=== PATIENT | male | born 1960 | race Caucasian/White ===

== ENCOUNTER 2019-05-11 08:41 | Outpatient (CLI) | payer OTHER ==
[~2019-05-11 08:41] MED LIST: AMIO200T42 PO; ASPI-515 PO; ATOR40TA78 PO; CLOP75TA PO; DOCU-131 PO; FURO20TA3 PO; LOSA25TA25 PO; METO25TA35 PO/NG; NITR0.4T28 SL; OXYC5CAP2 PO; POTA10TA5 PO; PRAV10TA2 PO
[2019-05-11] MEDS ORDERED: OMNIPAQUE 350 MG/ML, 100ML BOTTLE ONE (09:20)
== END 2019-05-11 23:59 | disposition home or self-care (01) ==
LOC: CFH 08:41
PROVIDERS: ATTEND Surgery
DX: I65.23 Occlusion and stenosis of bilateral carotid arteries (principal)
CPT/HCPCS: 70498; 82565; Q9967

== ENCOUNTER 2020-06-09 02:58 | Emergency (ER) | payer OTHER ==
[~2020-06-09] VITALS: Ht 175.3 cm; Wt 104.0 kg
--- NOTE | 2020-06-09 03:30 | NUR ---
Patient comes in with complaits of not being able to void since 1800. Patient stated that he has been having trouble voiding all day. 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 Placed leach cath. had 800ml immedatly out. Patient stated relief. B/p improved. aware.
[2020-06-09 03:48] LABS: MICROSCOPIC AUTO
[2020-06-09 03:51] LABS: ALBUMIN 3.8 g/dL (3.4-5.0); ANION GAP 8 mmol/L (5-15); BASOPHILS % (AUTO) 1 % (0-1); CALCIUM 8.9 mg/dL (8.5-10.1); CHLORIDE 109 mmol/L (98-107); CREATININE 0.98 mg/dL (0.7-1.3); EOSINOPHILS % (AUTO) 1 % (1-7); LYMPHOCYTES % (AUTO) 10 % (22-44); MEAN CORPUSCULAR HEMOGLOBIN 31.6 pg (27.5-34.5); MEAN CORPUSCULAR HGB CONC 33.6 g/dL (33.2-36.2); MEAN PLATELET VOLUME 8.9 fL (7.4-10.4); MONOCYTES % (AUTO) 8 % (2-9); NEUTROPHILS % (AUTO) 81 % (42-75); PLATELET COUNT 211 x10^3/uL (130-400); RED BLOOD COUNT 5.12 x10^6/uL (4.38-5.82)
[2020-06-09 04:05] LABS: MD NO
[2020-06-09 04:48] VITALS: BP 130/87
== END 2020-06-09 04:56 | disposition home or self-care (01) ==
LOC: ED 03:43
DX: N30.01 Acute cystitis with hematuria (principal); R33.9 Retention of urine, unspecified; R10.30 Lower abdominal pain, unspecified; F17.210 Nicotine dependence, cigarettes, uncomplicated
CPT/HCPCS: 36415; 51702; 80048; 81001; 82040; 85025; 87086; 99284; 99406